=== PATIENT | female | born 1980 | race Hispanic/Latino ===

== ENCOUNTER → 2020-06-04 | Outpatient (CLI) | payer BC ==
--- NOTE | 2020-06-04 09:44 | Diagnostic Imaging Report ---
TECHNIQUE: Magnetic resonance imaging of the LEFT KNEE was performed WITHOUT injected contrast. HISTORY: Left knee pain COMPARISON: None available. FINDINGS: LIGAMENTS AND TENDONS: ACL: Intact PCL: Intact Collateral ligaments: Intact Iliotibial band: Intact. Accessory band extending to the lateral meniscus. Popliteal tendon: Intact Extensor mechanism: Intact JOINT: Menisci: Medial: Degenerative signal in the posterior horn without tear Lateral: Degenerative signal in the anterior horn without tear Articular Cartilage: Medial Compartment: No focal defect. Lateral Compartment: No focal defect. Patellofemoral Compartment: Partial-thickness cartilage loss most prominent the patellar apex with fissuring and flap formation axial image 15 and involving the central trochlea sagittal image 20 Joint Fluid: Small joint effusion. BONE: No focal or infiltrative bone marrow replacing abnormality. No acute fracture. SOFT TISSUES: Otherwise, unremarkable. IMPRESSION: No acute osseous, ligamentous, or meniscal abnormality. Patellofemoral cartilage damage. Signed by: Dr. Hood Bernard M.D. on 06/04/2020 9:41 AM
== END ==
LOC: MRI 08:21
PROVIDERS: ATTEND Specialist
DX: S83.242A Other tear of medial meniscus, current injury, left knee, initial encounter (principal); M25.562 Pain in left knee